=== PATIENT | female | born 1940 | race Caucasian/White ===

== ENCOUNTER → 2021-03-31 | Outpatient (CLI) | payer MEDICARE ==
[2021-03-31 13:34] LABS: ALBUMIN 3.9 GM/DL (3.2-5.2); ALT/SGPT 20 U/L (12-78); BILIRUBIN,TOTAL 0.2 MG/DL (0.2-1.0); BLOOD UREA NITROGEN 16 MG/DL (7-18); CALCIUM LEVEL 9.4 MG/DL (8.8-10.2); CARBON DIOXIDE LEVEL 33 MEQ/L (21-32); CHLORIDE LEVEL 106 MEQ/L (98-107); CHOLESTEROL LEVEL 202 MG/DL (<200); CHOLESTEROL RISK RATIO 2.463 (<5); CREATININE FOR GFR 0.69 MG/DL (0.55-1.30); GLOMERULAR FILTRATION RATE > 60.0 (>32); GLUCOSE, FASTING 96 MG/DL (70-100); HDL CHOLESTEROL 82 MG/DL (>40); HEMATOCRIT 42.7 % (36.0-47.0); HEMOGLOBIN 13.9 g/dl (12.0-15.5); LDL CHOLESTEROL 95 MG/DL (<100); MEAN CORPUSCULAR HEMOGLOBIN 29.8 pg (27.0-33.0); MEAN CORPUSCULAR HGB CONC 32.6 g/dl (32.0-36.5); MEAN CORPUSCULAR VOLUME 91.4 fl (80.0-96.0); NON-HDL-C 120 MG/DL; PLATELET COUNT, AUTOMATED 254 10^3/uL (150-450); POTASSIUM SERUM 4.3 MEQ/L (3.5-5.1); RED BLOOD COUNT 4.67 10^6/uL (4.00-5.40); SODIUM LEVEL 142 MEQ/L (136-145); TOTAL PROTEIN 6.9 GM/DL (6.4-8.2); TRIGLYCERIDES LEVEL 124 MG/DL (<150); WHITE BLOOD COUNT 5.6 10^3/uL (4.0-10.0)
[2021-03-31 14:31] LABS: TOTAL 25(OH) VITAMIN D 34.6 NG/ML (30.0-100.0); VITAMIN B12 LEVEL 450 PG/ML (247-911)
== END ==
LOC: M PLALAB 11:00
PROVIDERS: ATTEND Nurse Practitioner Adult Health
DX: R01.1 Cardiac murmur, unspecified (principal); Z13.21 Encounter for screening for nutritional disorder; Z13.29 Encounter for screening for other suspected endocrine disorder; Z13.220 Encounter for screening for lipoid disorders; Z79.899 Other long term (current) drug therapy

== ENCOUNTER → 2021-05-09 | Outpatient (CLI) | payer MEDICARE ==
--- NOTE | 2021-05-10 13:39 | ECHO ---
ECHOCARDIOGRAM DATE OF PROCEDURE: 05/09/2021 Age: 80 Gender: Female Height: 61 inches Weight: 137 pounds Body Surface Area: 1.6 m2 PATIENT LOCATION: Outpatient. REFERRING PROVIDER: Jess Farley RN, ANP INDICATION: Heart murmur. MEASUREMENTS: 2D Measurements: RV 3.5 cm LV 4.3 cm Septum 1.0 cm Posterior wall 1.0 cm Aortic root 3.0 cm LA - 3.6 cm LVEF 70% Doppler Measurements: AV 3.08 m/sec LVOT - 0.9 m/sec LVOT diameter 1.8 cm Mean AV gradient 24 mmHg Dimensionless index 0.29 MV-E 01, A 112, EA ratio 0.8 Early mitral deceleration time 261 msec E prime medial 6 A prime medial 9 E prime lateral 8.4 Average E/E prime ratio 12.6/PCWP 17.6 mmHg PV - 0.9 m/sec Pulmonary artery acceleration time 100 msec RVSP 37 mmHg IVC 1.6 cm COMMENTS: Normal sinus rhythm without interventricular conduction disturbance. M-mode and 2-dimensional echocardiography was performed with pulse, continuous wave, color flow and tissue Doppler studies. Normal left ventricular size and wall thickness with hyperkinetic wall motion. Left atrial size upper limits of normal with Grade 1 LV diastolic dysfunction and current estimated mean left atrial pressure upper limits of normal. Normal right ventricular size and motion with Doppler evidence of mild pulmonary hypertension. Right atrial size upper limits of normal with normal IV size and collapse against an elevated central venous pressure. Normal aortic root and proximal ascending aortic diameter. No coarctation of the aorta. Moderate calcific aortic stenosis with trace insufficiency. Degenerative changes of the mitral valvular apparatus with adequate leaflet excursion and no posterior systolic buckling and no more than very mild insufficiency. Normal appearing tricuspid valve with very mild insufficiency. No apparent intracardiac mass or pericardial effusion.
== END ==
LOC: M CARPUL 08:24
PROVIDERS: ATTEND Nurse Practitioner Adult Health
DX: R01.1 Cardiac murmur, unspecified (principal)

== ENCOUNTER 2021-05-27 17:16 | Inpatient (IN) | payer MEDICARE ==
[~2021-05-27] VITALS: Ht 157.5 cm; Wt 62.0 kg
[2021-05-27] MEDS ORDERED: LORA-674 (17:41)
[2021-05-27] MEDS ORDERED: ERGO500029 (17:41)
[2021-05-27] MEDS ORDERED: BUSP10TA (17:41)
[2021-05-27] MEDS ORDERED: MONT10TA10 (17:41)
--- NOTE | 2021-05-27 18:16 | REPVR ---
PROCEDURE INFORMATION: Exam: CT Head Without Contrast Exam date and time: 05/27/2021 5:42 PM Age: 80 years old Clinical indication: Injury or trauma; Fall; Blunt trauma (contusions or hematomas); Additional info: Fall/hit head/unknown loc TECHNIQUE: Imaging protocol: Computed tomography of the head without contrast. Radiation optimization: All CT scans at this facility use at least one of these dose optimization techniques: automated exposure control; mA and/or kV adjustment per patient size (includes targeted exams where dose is matched to clinical indication); or iterative reconstruction. COMPARISON: No relevant prior studies available. FINDINGS: Brain: There is moderate to severe age-related parenchymal volume loss. White matter changes are demonstrated in the subcortical, centrum semiovale and periventricular white matter consistent with chronic age related small vessel ischemic changes. Cerebral ventricles: There is disproportionate enlargement of the ventricles relative to the cortical sulci, findings suggestive of normal pressure hydrocephalus. Paranasal sinuses: See "Bones/joints" finding. Mastoid air cells: Visualized mastoid air cells are well aerated. Bones/joints: Fractures of the lateral anterior wall right maxillary sinus of the right maxillary sinus. Near complete opacification of the right maxillary sinus which may represent inflammatory disease although a traumatic etiology not excluded. Air-fluid levels may related to acute trauma versus acute sinusitis. Mild widening of the right frontal zygomatic suture may indicate a fracture. Soft tissues: Unremarkable. IMPRESSION: 1. Fractures of the lateral anterior wall right maxillary sinus of the right maxillary sinus. Near complete opacification of the right maxillary sinus which may represent inflammatory disease although a traumatic etiology not excluded. Air-fluid levels may related to acute trauma versus acute sinusitis. 2. There is moderate to severe age-related parenchymal volume loss. White matter changes are demonstrated in the subcortical, centrum semiovale and periventricular white matter consistent with chronic age related small vessel ischemic changes. 3. There is disproportionate enlargement of the ventricles relative to the cortical sulci, findings suggestive of normal pressure hydrocephalus. 4. Mild widening of the right frontal zygomatic suture may indicate a fracture. Electronically signed by: Tyler Almendarez On 05/27/2021 18:15:49 PM
--- NOTE | 2021-05-27 18:23 | REPVR ---
PROCEDURE INFORMATION: Exam: CT Maxillofacial Without Contrast Exam date and time: 05/27/2021 5:42 PM Age: 80 years old Clinical indication: Injury or trauma; Fall; Blunt trauma (contusions or hematomas); Cheek bone and forehead and orbit/periorbital and jaw; Not specified; Bilateral; Additional info: Fall/hit head/unknown loc TECHNIQUE: Imaging protocol: Computed tomography images of the face without contrast. Radiation optimization: All CT scans at this facility use at least one of these dose optimization techniques: automated exposure control; mA and/or kV adjustment per patient size (includes targeted exams where dose is matched to clinical indication); or iterative reconstruction. COMPARISON: No relevant prior studies available. FINDINGS: Orbital cavity: Orbits are normal. Globes are unremarkable. Bones/joints: Fractures of the lateral anterior wall the right maxillary sinus. Mild widening of the right frontal zygomatic suture may represent a normal variant although a traumatic dehiscence is not excluded. Degenerative changes both temporomandibular joints. The cervical spine demonstrates moderate degenerative changes. Paranasal sinuses: Inflammatory changes demonstrated in the right maxillary sinus may indicate chronic sinusitis although changes secondary to trauma to be considered as well. Ethmoid and sphenoid sinuses are clear. The frontal sinuses are not pneumatized. Marked narrowing of the right ostiomeatal complex secondary to membranous thickening. Soft tissues: Mild pre maxillary soft tissue edema/contusion. Vasculature: Atherosclerotic changes both carotid arteries. Dental: Marked erosive changes of the of alveolar process of the edentulous maxilla. IMPRESSION: 1. Fractures of the lateral anterior wall the right maxillary sinus. 2. Inflammatory changes demonstrated in the right maxillary sinus may indicate chronic sinusitis although changes secondary to trauma to be considered as well. 3. Mild widening of the right frontal zygomatic suture may represent a normal variant although a traumatic dehiscence is not excluded. 4. Marked narrowing of the right ostiomeatal complex secondary to membranous thickening. 5. Mild pre maxillary soft tissue edema/contusion. Electronically signed by: Tyler Almendarez On 05/27/2021 18:23:26 PM
--- NOTE | 2021-05-27 18:30 | REPVR ---
PROCEDURE INFORMATION: Exam: CT Cervical Spine Without Contrast Exam date and time: 05/27/2021 5:42 PM Age: 80 years old Clinical indication: Injury or trauma; Fall; Blunt trauma; Additional info: Fall/hit head/unknown loc TECHNIQUE: Imaging protocol: Computed tomography images of the cervical spine without contrast. Radiation optimization: All CT scans at this facility use at least one of these dose optimization techniques: automated exposure control; mA and/or kV adjustment per patient size (includes targeted exams where dose is matched to clinical indication); or iterative reconstruction. COMPARISON: No relevant prior studies available. FINDINGS: Bones/joints: Degenerative changes both temporomandibular joints. Discs/Spinal canal/Neural foramina: There are degenerative changes demonstrated in the atlantoaxial joint at C1-C2 with osteophytes and joint space narrowing. The transverse ligament is normal. Disc space narrowing C3-C4 through T1-T2 with prominent intervertebral osteophytes. Straightened cervical lordosis. Moderate to severe foraminal stenosis on the right at C2, moderate foraminal stenosis on the right at C3, bilateral moderate foraminal stenosis at C4, moderate to severe foraminal stenosis on the left and mild foraminal stenosis on the right at C5, mild bilateral foraminal stenosis at C6, mild bilateral foraminal stenosis at C7. Multilevel disc osteophyte complexes result in varying degrees of effacement of the ventral subarachnoid space. The posterior disc protrusions at C3-C4 and C4-C5 without cord compromise. Disc osteophyte complex at C5-C6 effaces the ventral subarachnoid space with moderate to severe left hemicord impingement. Posterior disc protrusion at C6-C7 effaces the ventral subarachnoid space resulting in moderate cord impingement. Disc osteophyte complex at C7-T1 is resulting in moderate cord impingement. Sinuses: Please refer to accompanying maxillofacial CT with description of the paranasal sinuses. Lungs: Bilateral apical pleuroparenchymal scarring. Vasculature: Atherosclerotic changes both carotid arteries. Soft tissues: See "Discs/Spinal canal/Neural foramina" finding. 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 Electronically signed by: Tyler Almendarez On 05/27/2021 18:29:47 PM
[2021-05-27 19:56] LABS: BASO # 0.1 10^3/uL (0.0-0.2); BASO % 0.9 % (0.0-1.0); EOS # 0.1 10^3/uL (0.0-0.5); EOS % 1.2 % (0.0-3.0); HEMATOCRIT 40.9 % (36.0-47.0); HEMOGLOBIN 13.7 g/dl (12.0-15.5); LYMPH # 1.5 10^3/uL (1.5-5.0); LYMPH % 25.2 % (24.0-44.0); MEAN CORPUSCULAR HEMOGLOBIN 29.5 pg (27.0-33.0); MEAN CORPUSCULAR HGB CONC 33.5 g/dl (32.0-36.5); MONO # 0.5 10^3/uL (0.0-0.8); NEUTROPHILS # 3.8 10^3/uL (1.5-8.5); NEUTROPHILS % 64.2 % (36.0-66.0); PLATELET COUNT, AUTOMATED 258 10^3/uL (150-450); RED BLOOD COUNT 4.65 10^6/uL (4.00-5.40); WHITE BLOOD COUNT 5.8 10^3/uL (4.0-10.0)
[2021-05-27 20:20] LABS: ALBUMIN 3.6 GM/DL (3.2-5.2); ALT/SGPT 22 U/L (12-78); BILIRUBIN,DIRECT < 0.1 MG/DL (0.0-0.2); BILIRUBIN,TOTAL 0.3 MG/DL (0.2-1.0); BLOOD UREA NITROGEN 15 MG/DL (7-18); CALCIUM LEVEL 8.9 MG/DL (8.8-10.2); CARBON DIOXIDE LEVEL 31 MEQ/L (21-32); CHLORIDE LEVEL 104 MEQ/L (98-107); CK-MB VALUE MASS 3.2 NG/ML (<3.6); CPK CREATINE PHOSPHOKINASE 749 U/L (26-192); CREATININE FOR GFR 0.81 MG/DL (0.55-1.30); FREE T4 0.99 NG/DL (0.76-1.46); GLOMERULAR FILTRATION RATE > 60.0 (>32); GLUCOSE, FASTING 89 MG/DL (70-100); MB/CK RELATIVE INDEX 0.43 (< OR =4); POTASSIUM SERUM 4.2 MEQ/L (3.5-5.1); SODIUM LEVEL 141 MEQ/L (136-145); TOTAL PROTEIN 6.9 GM/DL (6.4-8.2); TROPONIN I 0.05 NG/ML (< 0.10)
[2021-05-27] MEDS ORDERED: MORPHINE 2 MG/ML 1ML VIAL (J2270) IV ONE (20:25)
[2021-05-27 20:28] LABS: RSV AMPLIFICATION NEGATIVE (NEGATIVE)
--- NOTE | 2021-05-27 21:01 | REPVR ---
PROCEDURE INFORMATION: Exam: XR Chest Exam date and time: 05/27/2021 8:54 PM Age: 80 years old Clinical indication: Shortness of breath and other: Syncope TECHNIQUE: Imaging protocol: XR of the chest. Views: 1 view. COMPARISON: CT Spine,cervical w/o contrast 05/27/2021 5:48 PM FINDINGS: Lungs: COPD. Mild increased interstitial markings likely chronic. No segmental or lobar infiltrates. Pleural spaces: Unremarkable. No pleural effusion. No pneumothorax. Heart/Mediastinum: Unremarkable. No cardiomegaly. Bones/joints: Unremarkable. IMPRESSION: 1. COPD. 2. Mild increased interstitial markings likely chronic. No segmental or lobar infiltrates. Electronically signed by: Tyler Almendarez On 05/27/2021 21:00:59 PM
--- NOTE | 2021-05-27 22:14 | HPEPDOC ---
[facility] Medical History & Physical Date of Admission May 27, 2021 Date of Service: May 27, 2021 Primary Care Physician: Jess Farley Attending Physician: ALFONZO PRITCHETT MD History and Physical CHIEF COMPLAINT:Fall HISTORY OF PRESENT ILLNESS: is a pleasant 80yo female with likely dementia who presented to the [facility] ED via EMS on 05/27/21 after sustaining a fall. She was walking downhill on a sidewalk when she fell. Per reports, the fall was witnessed by bystanders and she made primary contact on the right side of her face. The patient herself says that she was not using her walker, while reports from the field state that she was. The bystandards subsequently called EMS and she was brought to the ED. The patient does not remember falling and feels as though she likely did lose consciousness for a brief period. She reports there was bleeding from her nose and while not in significant pain, the right side of her face is sore. Initial imaging in the ED revealed a fracture of the right maxillary sinus, widening of the right frontal zygomatic suture (potentially indicative of fracture), and enlarged ventricles suggestive of NPH. Initial labs were unremarkable with the exception of a moderately elevated creatinine kinase (749). Of note, the patient recently moved to the area from [place] in November 2020 and established primary care locally with Jess Farley NP at the [facility] [place]. Per review of recent visits, the patient's daughters has many concerns related the patient's memory. Apparently she has had recent falls prior to the one today and been found in the wrong apartment. Due to issues with memory she was recently started on buspirone. REVIEW OF SYSTEMS: CONSTITUTIONAL: Denies recent fever, chills, night sweats, or unintentional change in weight HEENT: Reports soreness over the right side of her face, as well as bleeding from the nose s/p fall. Denies blurry vision, double vision, eye pain, tinnitus, ear pain CARDIOVASCULAR: Denies chest pain, chest pressure, or palpitations RESPIRATORY: Denies dyspnea or cough GASTROINTESTINAL: Denies abdominal pain, nausea, vomiting, diarrhea, or blood in stool GENITOURINARY: Denies dysuria or hematuria MUSCULOSKELETAL: Denies any significant myalgias or arthralgias NEUROLOGICAL: Reports that she does have issue with memory at times. HEMATOLOGIC: Denies recent easy bleeding or bruising (separate from today's fall) LYMPHATIC: Denies any new lumps or bumps. PAST MEDICAL/SURGICAL HISTORY: Recent memory changes and falls, likely related to dementia (has been referred to neurology for further work-up) Patient recently moved to the area and only just established primary care within the past couple months. There were no records for her new PCP to review. Hysterectomy, 1971 Unspecified foot surgery, 1989 Left knee arthroplasty, 1994 Right knee arthroplasty, 1997 SOCIAL HISTORY: Patient lives alone in [facility]. She does have a daughter who lives nearby and has multiple concerns about the patient's wellbeing related to memory changes and recent falls. Per recent PCP notes, patient is a non-smoker, does not consume alcohol and denied illicit drug use. FAMILY HISTORY: Father: ; dementia Mother: ; unspecified heart disease, 80% stenosis of carotid arteries Sister: Dementia Daughter: ; sustained brain injury after attempted suicide and later at a rehab center. ALLERGIES: Please see below. HOME MEDICATIONS: Please see below. PHYSICAL EXAMINATION: Vital Signs Date Time Temp Pulse Resp B/P (MAP) Pulse Ox O2 Delivery O2 Flow Rate FiO2 05/27/21 17:37 97.9 97 18 134/62 (86) 99 Room Air GENERAL APPEARANCE: Pleasant elderly female lying on her left side in ED bed. She is oriented to person place and time, but some of her responses are incongruent in tangential. No acute distress. HEENT: Normocephalic. There is bruising just inferior to the right eye over the cheekbone. There is dried crusted blood in the right nare. Wearing eyeglasses. Noninjected, anicteric sclera. Bilateral ear canals are patent with no signs of acute trauma. Oral cavity: Edentulous. No pharyngeal erythema or exudate appreciated. Neck: No lymphadenopathy appreciated. Trachea midline. CARDIOVASCULAR: 3/6% crescendo decrescendo systolic murmur. Regular rate, regular rhythm. Normal S1 and S2. LUNGS: Somewhat diminished tidal volume with no adventitious breath sounds appreciated. Speaking full sentences. Accessory muscle use. ABDOMEN: Soft, nontender nondistended. Normoactive bowel sounds throughout. No guarding or rigidity appreciated. No hepatosplenomegaly, no palpable masses appreciated. MUSCULOSKELETAL: 5/5 muscle strength of bilateral upper and lower extremities. EXTREMITIES: There is some slight swelling with no pitting edema of bilateral lower extremities. Healed incisional scars over bilateral knees but there are no active sources of bleeding/contusions over arms and legs. NEUROLOGICAL: Patient is alert and oriented to person, place, and time. Her short-term memory recall was actually intact. Cranial nerves III through XII are grossly intact. Sensation to light touch of upper and lower extremities intact bilaterally. Patient's responses to questions are delayed somewhat, but appropriate most times. She does have some incongruent thoughts and was tangential at times in response. 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 Certainly signs of dementia present. PSYCHIATRIC: Mood and affect appear appropriate. LABORATORY DATA: Please see below. IMAGING: CT cervical spine without contrast, 05/27/2021 FINDINGS: Bones/joints: Degenerative changes both temporomandibular joints. Discs/Spinal canal/Neural foramina: There are degenerative changes demonstrated in the atlantoaxial joint at C1-C2 with osteophytes and joint space narrowing. The transverse ligament is normal. Disc space narrowing C3-C4 through T1-T2 with prominent intervertebral osteophytes. Straightened cervical lordosis. Moderate to severe foraminal stenosis on the right at C2, moderate foraminal stenosis on the right at C3, bilateral moderate foraminal stenosis at C4, moderate to severe foraminal stenosis on the left and mild foraminal stenosis on the right at C5, mild bilateral foraminal stenosis at C6, mild bilateral foraminal stenosis at C7. Multilevel disc osteophyte complexes result in varying degrees of effacement of the ventral subarachnoid space. The posterior disc protrusions at C3-C4 and C4-C5 without cord compromise. Disc osteophyte complex at C5-C6 effaces the ventral subarachnoid space with moderate to severe left hemicord impingement. Posterior disc protrusion at C6-C7 effaces the ventral subarachnoid space resulting in moderate cord impingement. Disc osteophyte complex at C7-T1 is resulting in moderate cord impingement. Sinuses: Please refer to accompanying maxillofacial CT with description of the paranasal sinuses. Lungs: Bilateral apical pleuroparenchymal scarring. Vasculature: Atherosclerotic changes both carotid arteries. Soft tissues: See "Discs/Spinal canal/Neural foramina" finding. IMPRESSION: Marked degenerative spondylosis of the cervical spine without acute findings." CT head without contrast, 05/27/2021 FINDINGS: Brain: There is moderate to severe age-related parenchymal volume loss. White matter changes are demonstrated in the subcortical, centrum semiovale and periventricular white matter consistent with chronic age related small vessel ischemic changes. Cerebral ventricles: There is disproportionate enlargement of the ventricles relative to the cortical sulci, findings suggestive of normal pressure hydrocephalus. Paranasal sinuses: See "Bones/joints" finding. Mastoid air cells: Visualized mastoid air cells are well aerated. Bones/joints: Fractures of the la teral anterior wall right maxillary sinus of the right maxillary sinus. Near complete opacification of the right maxillary sinus which may represent inflammatory disease although a traumatic etiology not excluded. Air-fluid levels may related to acute trauma versus acute sinusitis. Mild widening of the right frontal zygomatic suture may indicate a fracture. Soft tissues: Unremarkab le. IMPRESSION: 1. Fractures of the lateral anterior wall right maxillary sinus of the right maxillary sinus. Near complete opacification of the right maxillary sinus which may represent inflammatory disease although a traumatic etiology not excluded. Air-fluid levels may related to acute trauma versus acute sinusitis. 2. There is moderate to severe age-related parenchymal volume loss. White matter changes are demonstrated in the subcortical, centrum semiovale and periventricular white matter consistent with chronic age related small vessel ischemic changes. 3. There is disproportionate enlargement of the ventricles relative to the cortical sulci, findings suggestive of normal pressure hydrocephalus. 4. Mild widening of the right frontal zygomatic suture may indicate a fracture. CT maxillofacial without contrast, 05/27/2021 FINDINGS: Orbital cavity: Orbits are normal. Globes are unremarkable. Bones/joints: Fractures of the lateral anterior wall the right maxillary sinus. Mild widening of the right frontal z ygomatic suture may represent a normal variant although a traumatic dehiscence is not excluded. Degenerative changes both temporomandibular joints. The cervical spine demonstrates moderate degenerative changes. Paranasal sinuses: Inflammatory changes demonstrated in the right maxillary sinus may indicate chronic sinusitis although changes secondary to trauma to be considered as well. Ethmoid and sphenoid sinuses are clear. The frontal sinuses are not pneumatized. Marked narrowing of the right ostiomeatal complex secondary to membranous thickening. Soft tissues: Mild pre maxillary soft tissue edema/contusion. Vasculature: Atherosclerotic changes both carotid arteries. Dental: Marked erosive changes of the of alveolar process of the edentulous maxilla. IMPRESS ION: 1. Fractures of the lateral anterior wall the right maxillary sinus. 2. Inflammatory changes demonstrated in the right maxillary sinus may indicate chronic sinusitis although changes secondary to trauma to be considered as well. 3. Mild widening of the right frontal zygomatic suture may represent a normal variant although a traumatic dehiscence is not excluded. 4. Marked zeeshan rowing of the right ostiomeatal complex secondary to membranous thickening. 5. Mild pre maxillary soft tissue edema/contusion. The lateral wall of the maxillary sinus fracture includes a fragment of the lateral wall that is displaced 4 mm into the maxillary sinus. The anterior wall of the maxillary sinus fracture is a fracture of the continues from the inferior orbital rim inferiorly through the anterior wall of the maxillary sinus with 2 mm of depression. In addition, as seen on sagittal image 24 and coronal image 18 there is a small fracture of the posterior right orbital floor with 1 mm of depression. As seen on axial image 18, slight buckling of the lateral wall of right orbit." Portable chest x-ray, 05/27/2021 FINDINGS: Lungs: COPD. Mild increased interstitial markings likely chronic. No segmental or lobar infiltrates. Pleural spaces: Unremarkable. No pleural effusion. No pneumothorax. Heart/Mediastinum: Unremarkable. No cardiomegaly. Bones/joints: Unremarkable. IMPRESSION: 1. COPD. 2. Mild increased interstitial markings likely chronic. No segmental or lobar infiltrates." MICROBIOLOGY: Please see below. ASSESSMENT & PLAN: This is an 80yo female with h/o likely dementia w/ recent memory issues and falls who presented to the ED on 05/27 via EMS after sustaining a fall going downhill while on a sidewalk. Pt did not remember falling and believes she lost consciousness. Imaging showed fracture of the right maxillary sinus as well as findings suggestive of NPH. Patient was admitted primarily for facial fractures and started on prophylactic antibiotics with sinus swelling, debility/social concerns, and slightly elevated CK. #Right lateral and anterior wall maxillary sinus fractures s/p fall -Patient suffered fall while walking on a sidewalk downhill; does not recall the fall feels like she lost consciousness; bystanders witnessed it and called EMS -Patient is not in significant pain at this time and was administered 1 dose of IV morphine; for now as needed Tylenol has been added and could certainly consider adding a stronger as needed medication for pain should patient become more symptomatic -Per addendum radiologist Dr. Ariza: Lateral wall fracture pushed about 4 mm into the sinus and anterior maxillary wall fracture was depressed 2 mm -Discussed the case with Dr. Thomas of ENT who agreed with starting antibiotics prophylactically due to the sinusitis, but does not feel surgical intervention is warranted. -Started doxycycline in the setting of sinusitis possibly from hematoma -Fall risk precautions -prn morphine along with scheduled Tylenol #Syncope -Patient had witnessed fall earlier today that she does not recall and feels she did lose consciousness -EKG showed normal sinus rhythm -Fall risk precautions -Orthostatic vital signs ordered -TSH unremarkable; BNP ordered; electrolytes WNL -Telemetry #Elevated CPK -Initial CPK of 749 -This is most likely secondary to her fall today; considering it is not thousand or above, lower suspicion for rhabdomyolysis -Regular diet started, but did give patient 500 mL of normal saline till pushing through the kidney -Urine myoglobin has been ordered -Kidney function was normal #Imaging findings suggestive of normal pressure hydrocephalus i/s/o presumed dementia -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, which is more common in older adults, plus no acute hemorrhage was seen on imaging upon admission -Patient has had recent falls per PCP notes and has had recent issues with memory and cognition; denies urinary incontinence -Certainly could be a contributing factor to her recent falls and memory issues -Patient recently established with Jess Farley NP who started the patient on buspirone for memory issues and made a referral to neurology -Home buspirone continued #Elevated blood pressure -Patient had systolic blood pressure of 188 which responded relatively well to a dose of morphine -Patient has no documented history of hypertension although she recently moved to the area and only just established with a local provider so records are scant. -Continue to monitor pressures and address pain; should pain be controlled and pressures remain elevated, consider antihypertensive pharmacotherapy #Debility and social concerns -PT/OT consults made -Patient lives alone and has had recent falls and memory issues on top of the fall that caused this presentation. Patient's daughter significant concerns and patient may require PFS consult. #DVT prophylaxis: Subcutaneous Lovenox CODE STATUS: Patient verbally stated she wants to be DNR/DNI. Nursing order made for MOST form to be completed. Disposition: Admit to [facility] Home Medications Scheduled Buspirone HCl (Buspirone HCl) 10 Mg Tablet, 10 MG PO DAILY Calcium Carbonate/Vitamin D3 (Calcium 500-Vit D3 200 Tablet) 1 Each Tablet, 1 TAB PO BID Ergocalciferol (Vitamin D2) (Vitamin D2) 50,000 Units Cap, 50,000 UNITS PO QWEEK Scheduled PRN Acetaminophen (Tylenol Arthritis) 650 Mg Tablet.er, 650 MG PO BID PRN for PAIN LEVEL 1-4 Loratadine (Loratadine) 10 Mg Tablet, 10 MG PO DAILY PRN for ALLERGY SYMPTOMS Allergies Coded Allergies: Penicillins (Verified Allergy, Unknown, 05/27/21) Sulfa (Sulfonamide Antibiotics) (Verified Allergy, Unknown, 05/27/21) GME ATTESTATION GME ATTESTATION My faculty preceptor for this patient encounter was physically present during the encounter and was fully available. All aspects of the patient interview, examination, medical decision making process, and medical care plan development were reviewed and approved by the faculty preceptor. The faculty preceptor is aware and concurs with the plan as stated in the body of this note and will attest to such by his/her cosignature. ATTENDING NOTE TIME OF SERVICE 1015PM CC: fall HPI: Ms.Sanford boston 80 yr old F w a hx of osteoporosis, dementia, small vessel ischemic disease, cataracts, COPD or Asthma, and unsteady gait had a fall while walking down a hill w/o her walker and thereafter hit her head & transiently lost consciousness. Date Time Temp Pulse Resp B/P (MAP) Pulse Ox O2 Delivery O2 Flow Rate FiO2 05/27/21 17:37 97.9 97 18 134/62 (86) 99 Room Air PE: she has a slim build / ecchymoses around her right eye / is alert and oriented LABS IMAGING CT cervical spine IMPRESSION: Marked degenerative spondylosis of the cervical spine without acute findings. CT head IMPRESSION: 1. Fractures of the lateral anterior wall right maxillary sinus of the right maxillary sinus. Near complete opacification of the right maxillary sinus which may represent inflammatory disease although a traumatic etiology not excluded. Air-fluid levels may related to acute trauma versus acute sinusitis. 2. There is moderate to severe age-related parenchymal volume loss. White matter changes are demonstrated in the subcortical, centrum semiovale and periventricular white matter consistent with chronic age related small vessel ischemic changes. 3. There is disproportionate enlargement of the ventricles relative to the cortical sulci, findings suggestive of normal pressure hydrocephalus. 4. Mild widening of the right frontal zygomatic suture may indicate a fracture. CT maxillofacial IMPRESSION: 1. Fractures of the lateral anterior wall the right maxillary sinus. 2. Inflammatory changes demonstrated in the right maxillary sinus may indicate chronic sinusitis although changes secondary to trauma to be considered as well. 3. Mild widening of the right frontal zygomatic suture may represent a normal variant although a traumatic dehiscence is not excluded. 4. Marked narrowing of the right ostiomeatal complex secondary to membranous thickening. 5. Mild pre maxillary soft tissue edema/contusion. Chest xray IMPRESSION: 1. COPD. 2. Mild increased interstitial markings likely chronic. No segmental or lobar infiltrates. ASSESSMENT & PLAN 1 Syncope - telemetry / fall precautions / orthostats 2 Fractures of the lateral anterior wall right maxillary sinus / acute sinusitis 2/2 mechanical fall - will touch base with regarding abx +/- out patient follow up / acetaminophen for pain 3 NPH ? / Dementia (she had a fall, some of the content of her speech was not congruent with the conversation) - the day time team may consider consulting Neurology & obtaining collateral hx from the patient's daughter to detemine if she has NPH and is a candidate for ventricular shunt 4 Rhabdomyolysis 2/2 fall - f/u urine myoglobin / IVF / trend CPK 5 Osteoporosis - c/w home meds 6 COPD vs Asthma - out pt PFTs 7 Uncontrolled HTN ? possibly due to pain- monitor vitals if her BP is still elevated after her pain is well controlled she may need anti-HTN meds 8 Cataracts ? (she has had blurry vision for awhile has surgery to "scrape a water main pipe layer her eyes") scheduled in the near future rest per 's H&P BETO CARNEY D.O. May 27, 2021 22:14 ALFONZO PRITCHETT MD May 27, 2021 23:13
[2021-05-27] MEDS ORDERED: ERGO500029 PO (23:48)
[2021-05-27] MEDS ORDERED: OYST500T92 PO (23:48)
[2021-05-27] MEDS ORDERED: BUSP10TA PO (23:48)
[2021-05-27] MEDS ORDERED: ACET650T61 PO (23:48)
[2021-05-27] MEDS ORDERED: ALEN70TA82 PO (23:48)
[2021-05-27] MEDS ORDERED: LORA-622 PO (23:48)
[2021-05-27] MEDS ORDERED: HOME MED LIST COMPLETE! XX SCH (23:50)
[2021-05-28] MEDS ORDERED: ACETAMINOPHEN 650MG ER TAB (TYLENOL ARTHRITIS) PO ONE
[2021-05-28 00:06] VITALS: BP 160/72
[2021-05-28] MEDS ORDERED: MAALOX 30 ML SUSP *UDC PO PRN (00:10)
[2021-05-28] MEDS ORDERED: MOM 30ML SUSPENSION UDC PO PRN (00:10)
[2021-05-28 00:14] VITALS: BP_SYST 139; BP_SYST 147; BP_SYST 150; BP_DIAS 68; BP_DIAS 70; BP_DIAS 73
[2021-05-28] MEDS ORDERED: MORPHINE 2 MG/ML 1ML VIAL (J2270) IV PRN (00:15)
[2021-05-28] MEDS ORDERED: LORATADINE 10 MG TAB PO PRN (00:15)
[2021-05-28] MEDS: DOXYCYCLINE HYCLATE 100MG TABLET PO SCH ×2 (00:22→18:11)
[2021-05-28 01:07] LABS: NT-PRO BNP 177 PG/ML (<450)
[2021-05-28] MEDS ORDERED: NS 500 ML IV ONE (02:20)
[2021-05-28 06:00] VITALS: BP 130/68
[2021-05-28] MEDS: ACETAMINOPHEN 650MG ER TAB (TYLENOL ARTHRITIS) PO SCH ×3 (06:16→21:05)
--- NOTE | 2021-05-28 06:21 | ECGEPIP ---
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
[2021-05-28 08:21] LABS: BASO # 0.1 10^3/uL (0.0-0.2); EOS # 0.1 10^3/uL (0.0-0.5); EOS % 2.5 % (0.0-3.0); HEMATOCRIT 36.9 % (36.0-47.0); HEMOGLOBIN 12.2 g/dl (12.0-15.5); LYMPH # 1.6 10^3/uL (1.5-5.0); LYMPH % 33.5 % (24.0-44.0); MEAN CORPUSCULAR HEMOGLOBIN 29.7 pg (27.0-33.0); MEAN CORPUSCULAR HGB CONC 33.1 g/dl (32.0-36.5); MEAN CORPUSCULAR VOLUME 89.8 fl (80.0-96.0); MONO # 0.5 10^3/uL (0.0-0.8); MONO % 11.1 % (2.0-8.0); NEUTROPHILS # 2.5 10^3/uL (1.5-8.5); NEUTROPHILS % 51.7 % (36.0-66.0); PLATELET COUNT, AUTOMATED 214 10^3/uL (150-450); RED BLOOD COUNT 4.11 10^6/uL (4.00-5.40); WHITE BLOOD COUNT 4.8 10^3/uL (4.0-10.0)
[2021-05-28 08:51] LABS: BLOOD UREA NITROGEN 12 MG/DL (7-18); CALCIUM LEVEL 8.8 MG/DL (8.8-10.2); CARBON DIOXIDE LEVEL 30 MEQ/L (21-32); CHLORIDE LEVEL 108 MEQ/L (98-107); CPK CREATINE PHOSPHOKINASE 432 U/L (26-192); CREATININE FOR GFR 0.69 MG/DL (0.55-1.30); GLOMERULAR FILTRATION RATE > 60.0 (>32); GLUCOSE, FASTING 102 MG/DL (70-100); POTASSIUM SERUM 4.1 MEQ/L (3.5-5.1); SODIUM LEVEL 140 MEQ/L (136-145)
[2021-05-28] MEDS: ENOXAPARIN 40MG/0.4ML SYRINGE (J1650 PER 10MG) SC SCH (10:49)
[2021-05-28] MEDS: busPIRone 10 MG TAB PO SCH (10:57)
[2021-05-28] MEDS: CALCIUM/VITAMIN D 500 MG TAB PO SCH ×2 (10:57→21:05)
[2021-05-28 14:00] VITALS: BP 123/66
--- NOTE | 2021-05-28 14:11 | IPNPDOC ---
Text Note Date of Service The patient was seen on 05/28/21. NOTE Subjective: No any acute events overnight. Patient denied fever, chills, don sea, vomiting, diarrhea dysuria. Objective: GENERAL APPEARANCE: NAD HEENT: no scleral icterus, no JVD, EOMI, right facial hematoma, there is dried crusted blood in the right nare CARDIOVASCULAR: S1S2 LUNGS: Diminished lung sounds bilaterally ABDOMEN: soft & not tender w palpation MUSCULOSKELETAL: no cyanosis, no swelling INTEGUMENT: no generalized pallor NEUROLOGICAL: cranial nerve function from 2-12 intact, follows commands, speech not dysarthric Assessment and plan This is an 80yo female with h/o likely dementia w/ recent memory issues and falls who presented to the ED on 05/27 via EMS after sustaining a fall going downhill while on a sidewalk. Pt did not remember falling and believes she lost consciousness. Imaging showed fracture of the right maxillary sinus as well as findings suggestive of NPH Right lateral and anterior wall maxillary sinus fractures s/p fall/deconditioning I talked to Dr. Thomas, he recommended follow-up with him in the outpatient settings, no indication for surgical intervention for now Continue doxycycline p.o. Continue pain management Syncope PT/OT Telemetry Continue to monitor orthostatic vital signs Rhabdomyolysis Status post mechanical fall Patient received IV fluid Continue to monitor CPK trended down Normal pressure hydrocephalus I talked to neurologist Dr. Roy. I discussed with him transfer to [facility] for neurosurgical evaluation He recommended follow-up with neurosurgeon in the outpatient settings and not to transfer patient Hypertension Continue home meds Dementia Continue home meds DVT prophylaxis Subcutaneous Lovenox Disposition Family looking for fdc placement VS,Arvinde, I+O VS, [place]aelbone, I+O Laboratory Tests 05/27/21 19:28 05/28/21 07:50 Vital Signs Date Time Temp Pulse Resp B/P (MAP) Pulse Ox O2 Delivery O2 Flow Rate FiO2 05/28/21 06:00 97.3 71 16 130/68 (88) 95 Room Air I&O- Last 24 Hours up to 6 AM 05/28/21 06:00 Intake Total 250 ml Balance 250 ml YESSENIA HERNANDEZ DO May 28, 2021 14:11
[2021-05-28 22:00] VITALS: BP 142/68
[2021-05-29] MEDS: ACETAMINOPHEN 650MG ER TAB (TYLENOL ARTHRITIS) PO SCH ×3 (05:12→19:42)
[2021-05-29 06:00] VITALS: BP 131/76
[2021-05-29 09:31] LABS: BASO # 0.1 10^3/uL (0.0-0.2); BASO % 1.1 % (0.0-1.0); EOS # 0.1 10^3/uL (0.0-0.5); EOS % 2.9 % (0.0-3.0); HEMATOCRIT 39.4 % (36.0-47.0); HEMOGLOBIN 13.2 g/dl (12.0-15.5); LYMPH # 1.5 10^3/uL (1.5-5.0); LYMPH % 33.8 % (24.0-44.0); MEAN CORPUSCULAR HEMOGLOBIN 29.7 pg (27.0-33.0); MEAN CORPUSCULAR HGB CONC 33.5 g/dl (32.0-36.5); MEAN CORPUSCULAR VOLUME 88.5 fl (80.0-96.0); MONO # 0.4 10^3/uL (0.0-0.8); MONO % 9.2 % (2.0-8.0); NEUTROPHILS # 2.4 10^3/uL (1.5-8.5); NEUTROPHILS % 52.8 % (36.0-66.0); PLATELET COUNT, AUTOMATED 240 10^3/uL (150-450); RED BLOOD COUNT 4.45 10^6/uL (4.00-5.40); WHITE BLOOD COUNT 4.6 10^3/uL (4.0-10.0)
[2021-05-29] MEDS: ENOXAPARIN 40MG/0.4ML SYRINGE (J1650 PER 10MG) SC SCH (09:42)
[2021-05-29] MEDS: busPIRone 10 MG TAB PO SCH (09:42)
[2021-05-29] MEDS: CALCIUM/VITAMIN D 500 MG TAB PO SCH ×2 (09:42→19:42)
[2021-05-29 10:13] LABS: ALBUMIN 3.2 GM/DL (3.2-5.2); ALT/SGPT 18 U/L (12-78); BILIRUBIN,TOTAL 0.5 MG/DL (0.2-1.0); BLOOD UREA NITROGEN 8 MG/DL (7-18); CALCIUM LEVEL 8.6 MG/DL (8.8-10.2); CARBON DIOXIDE LEVEL 31 MEQ/L (21-32); CHLORIDE LEVEL 105 MEQ/L (98-107); GLOMERULAR FILTRATION RATE > 60.0 (>32); GLUCOSE, FASTING 97 MG/DL (70-100); POTASSIUM SERUM 3.9 MEQ/L (3.5-5.1); SODIUM LEVEL 139 MEQ/L (136-145); TOTAL PROTEIN 6.2 GM/DL (6.4-8.2)
[2021-05-29] MEDS: DOCUSATE SODIUM 100MG CAPSULE PO SCH (11:01)
--- NOTE | 2021-05-29 12:31 | IPNPDOC ---
Text Note Date of Service The patient was seen on 05/29/21. NOTE Subjective: No any acute events overnight. Patient seems confused in the mo rning, initially she was oriented in place and time and later she became disoriented Objective: GENERAL APPEARANCE: NAD HEENT: no scleral icterus, no JVD, EOMI, right facial hematoma, there is dried crusted blood in the right nares CARDIOVASCULAR: S1S2 LUNGS: Diminished lung sounds bilaterally ABDOMEN: soft & not tender w palpation MUSCULOSKELETAL: no cyanosis, no swelling INTEGUMENT: no generalized pallor NEUROLOGICAL: cranial nerve function from 2-12 intact, follows commands, speech not dysarthric Assessment and plan This is an 80yo female with h/o likely dementia w/ recent memory issues and falls who presented to the ED on 05/27 via EMS after sustaining a fall going downhill while on a sidewalk. Pt did not remember falling and believes she lost consciousness. Imaging showed fracture of the right maxillary sinus as well as findings suggestive of NPH Right lateral and anterior wall maxillary sinus fractures s/p fall/deconditioni ng I talked to Dr. Thomas, he recommended follow-up with him in the outpatient settings, no indication for surgical intervention for now Continue doxycycline p.o. day 2 Continue pain management Delirium Frequent reorientation Continue to monitor Syncope PT/OT Telemetry shows sinus rhythm orthostatic vital signs negative Rhabdomyolysis Status post mechanical fall Patient received IV fluid Continue to monitor CPK trended down Normal pressure hydrocephalus I talked to neurologist Dr. Roy. I discussed with him transfer to [facility] for neurosurgical evaluation He recommended follow-up with neurosurgeon in the outpatient settings and not to transfer patient Hypertension Continue home meds Dementia Continue home meds DVT prophylaxis Subcutaneous Lovenox Disposition Family is looking for prison placement VS,Fishbone, I+O VS, Fishbone, I+O Laboratory Tests 05/29/21 08:57 Vital Signs Date Time Temp Pulse Resp B/P (MAP) Pulse Ox O2 Delivery O2 Flow Rate FiO2 05/29/21 06:00 97.1 81 17 131/76 (94) 98 Room Air I&O- Last 24 Hours up to 6 AM 05/29/21 06:00 Intake Total 1100 ml Output Total 1925 ml Balance -825 ml YESSENIA HERNANDEZ DO May 29, 2021 12:31
[2021-05-29 14:00] VITALS: BP 146/70
[2021-05-29] MEDS: DOXYCYCLINE HYCLATE 100MG TABLET PO SCH (17:01)
[2021-05-29] MEDS ORDERED: RAMELTEON 8 MG TAB (ROZEREM) PO PRN (19:30)
--- NOTE | 2021-05-29 20:23 | CR ---
NEUROLOGY CONSULTATION DATE: 05/28/2021 REFERRING PROVIDER: Afshin Ruiz D.O. CONSULTING PHYSICIAN: Kingston El M.D. REASON FOR CONSULTATION: 1. Suspicion for normal pressure hydrocephalus. 2. CT evidence of disproportionate enlargement of the ventricles related to the cortical sulci, findings suggestive of normal pressure hydrocephalus. HISTORY OF PRESENT ILLNESS: Mona Velasco is an 80-year-old female with baseline mild dementia, who presented to [facility] on 05/27/2021 after sustaining a fall while walking downhill on a sidewalk. The patient states prior to this fall she has not had any further other falls for several years. She is mildly incontinent to her bladder on occasion she states. She usually ambulates with the use of her walker. The patient states she was not using a walker at the time when she fell. The patient denies having any magnetic gait. She was able to ambulate for me and does not demonstrate magnetic gait. She is however unsteady. She lives alone with a cat. She is able to identify correctly the year, month, location. If she has dementia, it is considered mild at this time. I do not believe at this point she needs a transfer to a neurosurgeon for immediate shunt placement for suspected NPH. There is moderate atrophy of the brain, however the ventricles do balloon posteriorly out of proportion to the sulci widening. It is possible she may have early NPH. At this point she is not so keen on having surgical intervention for it. PAST MEDICAL HISTORY: The patient's past medical history is significant for: 1. Cognitive impairment dementia. 2. Recent fall with right facial maxillary fracture. PAST SURGICAL HISTORY: The patient's past surgical history is significant for: 1. Hysterectomy in 1971. 2. Unspecified foot surgery in 1989. 3. Left knee arthroplasty in 1994. 4. Right knee arthroplasty in 1997. SOCIAL HISTORY: The patient lives at home at [facility] on her own. The patient denies use of any alcohol or illicit drugs or tobacco. FAMILY HISTORY: Father with dementia. REVIEW OF SYSTEMS: Fourteen point review of systems was obtained and was negative except as per HPI. PHYSICAL EXAMINATION: GENERAL APPEARANCE: The patient is oriented to person, place and time. Speech, language, comprehension and repetition are intact. HEENT: Pupils are two and a half mm and round. The extraocular muscles are intact. There is no nystagmus. NEUROLOGICAL: Sensation to V-1, V-2, V-3 intact to light touch. There is no loss of hearing to finger rub. No facial weakness on exam. Tongue is midline. There is no pronator drift. There is no ataxia, dysmetria or tremor. Sensory is intact to light touch in all four extremities. Strength is reasonable in all four extremities with weakness in bilateral iliopsoas grade 4+. The rest is 5. Romberg testing is negative. The patient ambulates with a slightly wide based unsteady gait. She does ambulate without the use of a walker, without any magnetic gait or shuffling. ASSESSMENT: 1. The patient is suspected to have possible syncope while getting short of breath while walking down a hill versus mechanical fall with CT evidence suspicious for possible normal pressure hydrocephalus. The patient has occasional urinary incontinence and has only had this most recent one fall in several years. She denies magnetic gait. 2. Fracture of lateral anterior wall right maxillary sinus. 3. Current rhabdomyolysis. PLAN: 1. The patient can be seen in outpatient neurology visits. 2. She can be referred by her PCP to an outpatient neurosurgical clinic for evaluation of NPH. 3. She does not need any emergent shunt placement at this time. 4. Electively, she and her family can make a decision whether they would like to pursue a surgical option. The patient is not interested in surgical option at this time. 5. Continue PT/OT evaluation. 6. The patient is recommended to use a walker at all times to ambulate.
[2021-05-29 20:46] VITALS: BP 125/64
[2021-05-29] MEDS ORDERED: hydrOXYzine 50 MG TAB PO ONE (22:05)
[2021-05-30 06:00] VITALS: BP 143/73
[2021-05-30] MEDS: ACETAMINOPHEN 650MG ER TAB (TYLENOL ARTHRITIS) PO SCH (06:03)
[2021-05-30 06:17] LABS: BASO # 0.1 10^3/uL (0.0-0.2); EOS # 0.2 10^3/uL (0.0-0.5); EOS % 3.5 % (0.0-3.0); HEMATOCRIT 36.8 % (36.0-47.0); HEMOGLOBIN 12.4 g/dl (12.0-15.5); MEAN CORPUSCULAR HEMOGLOBIN 29.7 pg (27.0-33.0); MEAN CORPUSCULAR HGB CONC 33.7 g/dl (32.0-36.5); MEAN CORPUSCULAR VOLUME 88.2 fl (80.0-96.0); MONO # 0.5 10^3/uL (0.0-0.8); MONO % 9.4 % (2.0-8.0); NEUTROPHILS # 2.2 10^3/uL (1.5-8.5); NEUTROPHILS % 46.1 % (36.0-66.0); PLATELET COUNT, AUTOMATED 229 10^3/uL (150-450); RED BLOOD COUNT 4.17 10^6/uL (4.00-5.40); WHITE BLOOD COUNT 4.9 10^3/uL (4.0-10.0)
[2021-05-30 06:50] LABS: ALBUMIN 2.8 GM/DL (3.2-5.2); ALT/SGPT 16 U/L (12-78); BILIRUBIN,TOTAL 0.3 MG/DL (0.2-1.0); BLOOD UREA NITROGEN 11 MG/DL (7-18); CARBON DIOXIDE LEVEL 29 MEQ/L (21-32); CHLORIDE LEVEL 106 MEQ/L (98-107); CREATININE FOR GFR 0.73 MG/DL (0.55-1.30); GLOMERULAR FILTRATION RATE > 60.0 (>32); GLUCOSE, FASTING 95 MG/DL (70-100); MAGNESIUM LEVEL 1.9 MG/DL (1.8-2.4); POTASSIUM SERUM 3.9 MEQ/L (3.5-5.1); SODIUM LEVEL 139 MEQ/L (136-145); TOTAL PROTEIN 5.7 GM/DL (6.4-8.2)
[2021-05-30] MEDS: ENOXAPARIN 40MG/0.4ML SYRINGE (J1650 PER 10MG) SC SCH (08:19)
[2021-05-30] MEDS: busPIRone 10 MG TAB PO SCH (08:19)
[2021-05-30] MEDS: DOCUSATE SODIUM 100MG CAPSULE PO SCH (08:20)
[2021-05-30] MEDS: CALCIUM/VITAMIN D 500 MG TAB PO SCH (08:20)
[2021-05-30] MEDS ORDERED: DOXY100T PO (11:57)
--- NOTE | 2021-05-30 12:47 | DS.PDOC ---
Discharge Summary General Date of Admission May 27, 2021 at 22:09 Date of Discharge 05/30/21 Discharge Summary PROCEDURES PERFORMED DURING STAY: [None]. ADMITTING DIAGNOSES: Right lateral and anterior wall maxillary sinus fractures s/p fall/deconditioning Delirium Syncope Rhabdomyolysis Normal pressure hydrocephalus Hypertension DISCHARGE DIAGNOSES: Right lateral and anterior wall maxillary sinus fractures s/p fall/deconditioning Delirium Syncope Rhabdomyolysis Normal pressure hydrocephalus Hypertension COMPLICATIONS/CHIEF COMPLAINT: Facial Fracture, Rhabdomylysis, Syncope. HISTORY OF PRESENT ILLNESS: is a pleasant 80yo female with likely dementia who presented to the [facility] ED via EMS on 05/27/21 after sustaining a fall. She was walking downhill on a sidewalk when she fell. Per reports, the fall was witnessed by bystanders and she made primary contact on the right side of her face. The patient herself says that she was not using her walker, while reports from the field state that she was. The bystandards subsequently called EMS and she was brought to the ED. The patient does not remember falling and feels as though she likely did lose consciousness for a brief period. She reports there was bleeding from her nose and while not in significant pain, the right side of her face is sore. Initial imaging in the ED revealed a fracture of the right maxillary sinus, widening of the right frontal zygomatic suture (potentially indicative of fracture), and enlarged ventricles suggestive of NPH. Initial labs were unremarkable with the exception of a moderately elevated creatinine kinase (749). Of note, the patient recently moved to the area from [place] in November 2020 and established primary care locally with Jess Farley NP at the [facility]. Per review of recent visits, the patient's daughters has many concerns related the patient's memory. Apparently she has had recent falls prior to the one today and been found in the wrong apartment. Due to issues with memory she was recently started on buspirone. HOSPITAL COURSE: Right lateral and anterior wall maxillary sinus fractures s/p fall/deconditioning I talked to Dr. Thomas, he recommended follow-up with him in the outpatient settings, no indication for surgical intervention for now. Neurology team consulted patient, patient was found to have normal pressure hydrocephalus on the CT scan. No surgical intervention indicated at this time. Neurology team recommended follow-up in the outpatient settings Patient received treatment with doxycycline p.o. and pain management DISCHARGE MEDICATIONS: Please see below. ALLERGIES: Please see below. PHYSICAL EXAMINATION ON DISCHARGE: VITAL SIGNS: Please see below. GENERAL APPEARANCE: NAD HEENT: no scleral icterus, no JVD, EOMI, right facial hematoma, there is dried crusted blood in the right nares CARDIOVASCULAR: S1S2 LUNGS: Diminished lung sounds bilaterally ABDOMEN: soft & not tender w palpation MUSCULOSKELETAL: no cyanosis, no swelling INTEGUMENT: no generalized pallor NEUROLOGICAL: cranial nerve function from 2-12 intact, follows commands, speech not dysarthric LABORATORY DATA: Please see below. IMAGING: See above PROGNOSIS: Fair ACTIVITY: [As tolerated]. DIET: Regular DISPOSITION: Home with home health ITEMS TO FOLLOWUP ON ON OUTPATIENT: Follow-up with neurologist and PCP DISCHARGE CONDITION: [Stable]. TIME SPENT ON DISCHARGE:40minutes. Vital Signs/I&Os Vital Signs Date Time Temp Pulse Resp B/P (MAP) Pulse Ox O2 Delivery O2 Flow Rate FiO2 05/30/21 06:00 97.5 76 17 143/73 (96) 96 Room Air I&O- Last 24 Hours up to 6 AM 05/30/21 05:59 Intake Total 1540 ml Output Total 1350 ml Balance 190 ml Laboratory Data Labs 24H Laboratory Tests 2 05/30/21 05:59: Immature Granulocyte % (Auto) 0.0, Neutrophils (%) (Auto) 46.1, Lymphocytes (%) (Auto) 40.0, Monocytes (%) (Auto) 9.4H, Eosinophils (%) (Auto) 3.5H, Basophils (%) (Auto) 1.0, Neutrophils # (Auto) 2.2, Lymphocytes # (Auto) 2.0, Monocytes # (Auto) 0.5, Eosinophils # (Auto) 0.2, Basophils # (Auto) 0.1, Nucleated Red Blood Cells % (auto) 0.0, Anion Gap 4L, Glomerular Filtration Rate > 60.0, Calcium Level 9.0, Magnesium Level 1.9, Total Bilirubin 0.3, Aspartate Amino Transf (AST/SGOT) 20, Alanine Aminotransferase (ALT/SGPT) 16, Alkaline Phosphatase 56, Total Protein 5.7L, Albumin 2.8L, Albumin/Globulin Ratio 1.0L CBC/BMP Laboratory Tests 05/30/21 05:59 Discharge Medications Scheduled Buspirone HCl (Buspirone HCl) 10 Mg Tablet, 10 MG PO DAILY, (Reported) Calcium Carbonate/Vitamin D3 (Calcium 500-Vit D3 200 Tablet) 1 Each Tablet, 1 TAB PO BID, (Reported) Doxycycline Hyclate (Doxycycline Hyclate) 100 Mg Tablet, 100 MG PO DAILY@1800 Ergocalciferol (Vitamin D2) (Vitamin D2) 50,000 Units Cap, 50,000 UNITS PO QWEEK, (Reported) Scheduled PRN Acetaminophen (Tylenol Arthritis) 650 Mg Tablet.er, 650 MG PO BID PRN for PAIN LEVEL 1-4, (Reported) Loratadine (Loratadine) 10 Mg Tablet, 10 MG PO DAILY PRN for ALLERGY SYMPTOMS, (Reported) Allergies Coded Allergies: Penicillins (Verified Allergy, Unknown, 05/27/21) Sulfa (Sulfonamide Antibiotics) (Verified Allergy, Unknown, 05/27/21) YESSENIA HERNANDEZ DO May 30, 2021 12:47
[2021-05-30] MEDS ORDERED: PREVNAR 13 VACCINE SYRINGE IM ONE (14:00)
[2021-05-30] MEDS ORDERED: FLUBLOK(EGG FREE)(QUAD)INFLUENZA VACC 0.5ML SYRINGE 18YRS & OLDER IM ONE (14:00)
--- NOTE | 2021-05-30 19:11 | ECGEPIP ---
[facility] Test Date: 2021-05-29 Pat Name: BROOKE TIAN Department: Room: [place] [address] Gender: Female Hay Stacker: FLORIAN : 1940 Requested By: YESSENIA HERNANDEZ Order Number: [id number] Reading MD: Chris Winslow Measurements Intervals [place] Rate: 75 P: 82 MI: 176 QRS: 25 QRSD: 58 T: 32 QT: 380 QTc: 424 Interpretive Statements Normal sinus rhythm Similar to tracing done 05-27-21 Electronically Signed on 05-30-2021 19:11:30 EDT by Chris Winslow
[2021-06-03] MEDS ORDERED: VITAMIN D 50,000 UNITS CAPSULE (ERGOCALCIFEROL 1.25MG) PO SCH (09:00)
== END 2021-05-30 14:08 | disposition home health service (06) | DRG 158 ==
LOC: EDBD 17:16 → M ED 17:16 → M ED INP 22:09 → ENRESERV 23:36 → M MSPAV 05-28 00:09
PROVIDERS: ADMIT Internal Medicine; ATTEND Internal Medicine
DX: S02.40CA Maxillary fracture, right side, initial encounter for closed fracture (principal); M62.82 Rhabdomyolysis; G91.2 (Idiopathic) normal pressure hydrocephalus; R55 Syncope and collapse; I10 Essential (primary) hypertension; W18.30XA Fall on same level, unspecified, initial encounter; Y92.009 Unspecified place in unspecified non-institutional (private) residence as the place of occurrence of the external cause; Z79.899 Other long term (current) drug therapy; Z88.0 Allergy status to penicillin; Z88.2 Allergy status to sulfonamides; F03.90 Unspecified dementia, unspecified severity, without behavioral disturbance, psychotic disturbance, mood disturbance, and anxiety; H26.9 Unspecified cataract; M81.0 Age-related osteoporosis without current pathological fracture

== ENCOUNTER → 2021-08-04 | Outpatient (CLI) | payer MEDICARE ==
[~2021-08-04] MED LIST: ACET650T61 PO; ALEN70TA82 PO; BUSP10TA; BUSP10TA PO; DOXY100T PO; ERGO500029; ERGO500029 PO; LORA-622 PO; LORA-674; MONT10TA10; OYST500T92 PO
[2021-08-04 17:31] LABS: BASO # 0.1 10^3/uL (0.0-0.2); EOS # 0.1 10^3/uL (0.0-0.5); EOS % 1.7 % (0.0-3.0); HEMATOCRIT 40.6 % (36.0-47.0); HEMOGLOBIN 13.7 g/dl (12.0-15.5); LYMPH # 1.7 10^3/uL (1.5-5.0); MEAN CORPUSCULAR HEMOGLOBIN 30.2 pg (27.0-33.0); MEAN CORPUSCULAR HGB CONC 33.7 g/dl (32.0-36.5); MEAN CORPUSCULAR VOLUME 89.6 fl (80.0-96.0); MONO # 0.5 10^3/uL (0.0-0.8); MONO % 7.8 % (2.0-8.0); NEUTROPHILS # 3.7 10^3/uL (1.5-8.5); NEUTROPHILS % 61.3 % (36.0-66.0); PLATELET COUNT, AUTOMATED 272 10^3/uL (150-450); RED BLOOD COUNT 4.53 10^6/uL (4.00-5.40)
[2021-08-04 17:49] LABS: ALBUMIN 3.6 GM/DL (3.2-5.2); ALT/SGPT 21 U/L (12-78); BILIRUBIN,TOTAL 0.2 MG/DL (0.2-1.0); BLOOD UREA NITROGEN 18 MG/DL (7-18); CALCIUM LEVEL 9.3 MG/DL (8.8-10.2); CARBON DIOXIDE LEVEL 31 MEQ/L (21-32); CHLORIDE LEVEL 106 MEQ/L (98-107); CREATININE FOR GFR 0.74 MG/DL (0.55-1.30); GLOMERULAR FILTRATION RATE > 60.0 (>32); GLUCOSE, FASTING 99 MG/DL (70-100); POTASSIUM SERUM 4.1 MEQ/L (3.5-5.1); SODIUM LEVEL 141 MEQ/L (136-145); TOTAL PROTEIN 6.6 GM/DL (6.4-8.2)
[2021-08-04 17:58] LABS: FOLATE 6.5 NG/ML; VITAMIN B12 LEVEL 359 PG/ML
== END ==
LOC: M PLALAB 14:35
PROVIDERS: ATTEND Psychiatry & Neurology Neurology
DX: F03.90 Unspecified dementia, unspecified severity, without behavioral disturbance, psychotic disturbance, mood disturbance, and anxiety (principal)

== ENCOUNTER 2021-10-21 17:14 | Emergency (ER) | payer MEDICARE ==
[~2021-10-21] VITALS: Ht 167.6 cm; Wt 81.8 kg
[~2021-10-21 17:14] MED LIST changes: -MONT10TA10; +MONT10TA97
[2021-10-21 17:57] LABS: BASO # 0.1 10^3/uL (0.0-0.2); EOS # 0.1 10^3/uL (0.0-0.5); EOS % 1.3 % (0.0-3.0); HEMATOCRIT 40.9 % (36.0-47.0); HEMOGLOBIN 13.9 g/dl (12.0-15.5); LYMPH # 1.3 10^3/uL (1.5-5.0); LYMPH % 25.2 % (24.0-44.0); MEAN CORPUSCULAR HEMOGLOBIN 30.2 pg (27.0-33.0); MEAN CORPUSCULAR VOLUME 88.7 fl (80.0-96.0); MONO # 0.6 10^3/uL (0.0-0.8); MONO % 10.7 % (2.0-8.0); NEUTROPHILS # 3.2 10^3/uL (1.5-8.5); NEUTROPHILS % 61.6 % (36.0-66.0); PLATELET COUNT, AUTOMATED 243 10^3/uL (150-450); RED BLOOD COUNT 4.61 10^6/uL (4.00-5.40); WHITE BLOOD COUNT 5.2 10^3/uL (4.0-10.0)
[2021-10-21 18:22] LABS: BLOOD UREA NITROGEN 10 MG/DL (7-18); CALCIUM LEVEL 9.3 MG/DL (8.8-10.2); CARBON DIOXIDE LEVEL 31 MEQ/L (21-32); CHLORIDE LEVEL 102 MEQ/L (98-107); CREATININE FOR GFR 0.63 MG/DL (0.55-1.30); GLOMERULAR FILTRATION RATE > 60.0 (>32); GLUCOSE, FASTING 89 MG/DL (70-100); SODIUM LEVEL 137 MEQ/L (136-145)
[2021-10-21 20:05] VITALS: BP 119/83
== END 2021-10-21 20:26 | disposition home or self-care (01) ==
LOC: EDBD 17:14 → M ED 17:14
DX: F03.90 Unspecified dementia, unspecified severity, without behavioral disturbance, psychotic disturbance, mood disturbance, and anxiety (principal); I10 Essential (primary) hypertension; J44.9 Chronic obstructive pulmonary disease, unspecified; Z87.891 Personal history of nicotine dependence; Z79.899 Other long term (current) drug therapy

== ENCOUNTER 2021-10-24 18:41 | Inpatient (IN) | payer MEDICARE ==
[~2021-10-24] VITALS: Ht 152.4 cm; Wt 52.1 kg
[2021-10-24 23:36] LABS: BASO # 0.1 10^3/uL (0.0-0.2); BASO % 1.2 % (0.0-1.0); EOS # 0.1 10^3/uL (0.0-0.5); EOS % 1.2 % (0.0-3.0); HEMATOCRIT 43.2 % (36.0-47.0); HEMOGLOBIN 14.6 g/dl (12.0-15.5); LYMPH # 1.8 10^3/uL (1.5-5.0); LYMPH % 30.3 % (24.0-44.0); MEAN CORPUSCULAR HEMOGLOBIN 30.2 pg (27.0-33.0); MEAN CORPUSCULAR HGB CONC 33.8 g/dl (32.0-36.5); MEAN CORPUSCULAR VOLUME 89.3 fl (80.0-96.0); MONO # 0.7 10^3/uL (0.0-0.8); MONO % 12.3 % (2.0-8.0); NEUTROPHILS # 3.2 10^3/uL (1.5-8.5); NEUTROPHILS % 54.7 % (36.0-66.0); PLATELET COUNT, AUTOMATED 242 10^3/uL (150-450); RED BLOOD COUNT 4.84 10^6/uL (4.00-5.40); WHITE BLOOD COUNT 5.9 10^3/uL (4.0-10.0)
[2021-10-25 01:33] LABS: ALBUMIN 3.6 GM/DL (3.2-5.2); ALT/SGPT 35 U/L (12-78); BILIRUBIN,TOTAL 0.5 MG/DL (0.2-1.0); BLOOD UREA NITROGEN 20 MG/DL (7-18); CALCIUM LEVEL 9.2 MG/DL (8.8-10.2); CARBON DIOXIDE LEVEL 32 MEQ/L (21-32); CHLORIDE LEVEL 104 MEQ/L (98-107); CREATININE FOR GFR 0.68 MG/DL (0.55-1.30); GLOMERULAR FILTRATION RATE > 60.0 (>32); GLUCOSE, FASTING 103 MG/DL (70-100); POTASSIUM SERUM 3.5 MEQ/L (3.5-5.1); SODIUM LEVEL 141 MEQ/L (136-145); TOTAL PROTEIN 6.5 GM/DL (6.4-8.2)
[2021-10-25 04:10] LABS: RSV AMPLIFICATION NEGATIVE (NEGATIVE)
[2021-10-25] MEDS ORDERED: HOME MED LIST COMPLETE! XX SCH (04:45)
[2021-10-25] MEDS ORDERED: NS 1,000 ML IV SCH (05:40)
[2021-10-25 06:00] VITALS: BP 125/64
[2021-10-25 06:33] LABS: HEMATOCRIT 40.2 % (36.0-47.0); HEMOGLOBIN 13.4 g/dl (12.0-15.5); MEAN CORPUSCULAR HEMOGLOBIN 30.1 pg (27.0-33.0); MEAN CORPUSCULAR HGB CONC 33.3 g/dl (32.0-36.5); MEAN CORPUSCULAR VOLUME 90.3 fl (80.0-96.0); PLATELET COUNT, AUTOMATED 210 10^3/uL (150-450); RED BLOOD COUNT 4.45 10^6/uL (4.00-5.40)
[2021-10-25] MEDS: ACETAMINOPHEN TAB 650MG DOSE (2X325MG) PO PRN ×2 (06:40→20:08)
[2021-10-25 07:09] LABS: BLOOD UREA NITROGEN 18 MG/DL (7-18); CALCIUM LEVEL 8.9 MG/DL (8.8-10.2); CARBON DIOXIDE LEVEL 32 MEQ/L (21-32); CHLORIDE LEVEL 106 MEQ/L (98-107); CREATININE FOR GFR 0.66 MG/DL (0.55-1.30); GLOMERULAR FILTRATION RATE > 60.0 (>32); GLUCOSE, FASTING 101 MG/DL (70-100); MAGNESIUM LEVEL 2.2 MG/DL (1.8-2.4); NT-PRO BNP 202 PG/ML (<450); POTASSIUM SERUM 3.7 MEQ/L (3.5-5.1); SODIUM LEVEL 141 MEQ/L (136-145)
[2021-10-25] MEDS: ENOXAPARIN 40MG/0.4ML SYRINGE (J1650 PER 10MG) SC SCH (08:39)
[2021-10-25 14:00] VITALS: BP 122/75
[2021-10-25] MEDS: QUEtiapine FUMARATE 25 MG TAB PO SCH (20:08)
[2021-10-25 20:58] VITALS: BP 120/76
[2021-10-26 05:58] LABS: EOS # 0.1 10^3/uL (0.0-0.5); EOS % 3.1 % (0.0-3.0); HEMATOCRIT 37.9 % (36.0-47.0); HEMOGLOBIN 12.7 g/dl (12.0-15.5); LYMPH # 1.8 10^3/uL (1.5-5.0); LYMPH % 43.8 % (24.0-44.0); MEAN CORPUSCULAR HEMOGLOBIN 29.8 pg (27.0-33.0); MEAN CORPUSCULAR HGB CONC 33.5 g/dl (32.0-36.5); MONO # 0.5 10^3/uL (0.0-0.8); MONO % 11.1 % (2.0-8.0); NEUTROPHILS # 1.7 10^3/uL (1.5-8.5); PLATELET COUNT, AUTOMATED 214 10^3/uL (150-450); RED BLOOD COUNT 4.26 10^6/uL (4.00-5.40); WHITE BLOOD COUNT 4.2 10^3/uL (4.0-10.0)
[2021-10-26 06:00] VITALS: BP 133/74
[2021-10-26 06:19] LABS: BLOOD UREA NITROGEN 12 MG/DL (7-18); CALCIUM LEVEL 8.8 MG/DL (8.8-10.2); CARBON DIOXIDE LEVEL 30 MEQ/L (21-32); CHLORIDE LEVEL 108 MEQ/L (98-107); CREATININE FOR GFR 0.61 MG/DL (0.55-1.30); GLOMERULAR FILTRATION RATE > 60.0 (>32); GLUCOSE, FASTING 87 MG/DL (70-100); MAGNESIUM LEVEL 2.1 MG/DL (1.8-2.4); POTASSIUM SERUM 3.6 MEQ/L (3.5-5.1); SODIUM LEVEL 140 MEQ/L (136-145)
[2021-10-26] MEDS: ACETAMINOPHEN TAB 650MG DOSE (2X325MG) PO PRN ×2 (06:30→20:36)
[2021-10-26] MEDS: ENOXAPARIN 40MG/0.4ML SYRINGE (J1650 PER 10MG) SC SCH (09:53)
[2021-10-26] MEDS ORDERED: DOCUSATE SODIUM 100MG CAPSULE PO PRN (18:20)
[2021-10-26] MEDS ORDERED: SENNA 8.6 MG TAB (SENOKOT) PO PRN (18:20)
[2021-10-26] MEDS: QUEtiapine FUMARATE 25 MG TAB PO SCH (20:36)
[2021-10-26 22:00] VITALS: BP 111/58
[2021-10-27 06:00] VITALS: BP 113/63
[2021-10-27 06:13] LABS: BASO # 0.1 10^3/uL (0.0-0.2); BASO % 1.3 % (0.0-1.0); EOS # 0.2 10^3/uL (0.0-0.5); EOS % 3.8 % (0.0-3.0); HEMATOCRIT 36.5 % (36.0-47.0); HEMOGLOBIN 12.3 g/dl (12.0-15.5); LYMPH # 1.8 10^3/uL (1.5-5.0); LYMPH % 40.7 % (24.0-44.0); MEAN CORPUSCULAR HEMOGLOBIN 29.9 pg (27.0-33.0); MEAN CORPUSCULAR HGB CONC 33.7 g/dl (32.0-36.5); MEAN CORPUSCULAR VOLUME 88.6 fl (80.0-96.0); MONO # 0.5 10^3/uL (0.0-0.8); MONO % 10.6 % (2.0-8.0); NEUTROPHILS % 43.4 % (36.0-66.0); PLATELET COUNT, AUTOMATED 206 10^3/uL (150-450); RED BLOOD COUNT 4.12 10^6/uL (4.00-5.40); WHITE BLOOD COUNT 4.5 10^3/uL (4.0-10.0)
[2021-10-27 06:41] LABS: BLOOD UREA NITROGEN 15 MG/DL (7-18); CALCIUM LEVEL 8.7 MG/DL (8.8-10.2); CARBON DIOXIDE LEVEL 30 MEQ/L (21-32); CHLORIDE LEVEL 107 MEQ/L (98-107); GLOMERULAR FILTRATION RATE > 60.0 (>32); GLUCOSE, FASTING 88 MG/DL (70-100); MAGNESIUM LEVEL 2.1 MG/DL (1.8-2.4); POTASSIUM SERUM 3.7 MEQ/L (3.5-5.1); SODIUM LEVEL 141 MEQ/L (136-145)
[2021-10-27] MEDS: ENOXAPARIN 40MG/0.4ML SYRINGE (J1650 PER 10MG) SC SCH (11:39)
[2021-10-27] MEDS: QUEtiapine FUMARATE 25 MG TAB PO SCH (20:02)
[2021-10-28 06:13] VITALS: BP 129/68
[2021-10-28 06:34] LABS: BASO # 0.1 10^3/uL (0.0-0.2); EOS # 0.2 10^3/uL (0.0-0.5); HEMATOCRIT 37.3 % (36.0-47.0); HEMOGLOBIN 12.4 g/dl (12.0-15.5); LYMPH # 1.9 10^3/uL (1.5-5.0); LYMPH % 38.1 % (24.0-44.0); MEAN CORPUSCULAR HEMOGLOBIN 29.8 pg (27.0-33.0); MEAN CORPUSCULAR HGB CONC 33.2 g/dl (32.0-36.5); MEAN CORPUSCULAR VOLUME 89.7 fl (80.0-96.0); MONO # 0.6 10^3/uL (0.0-0.8); MONO % 12.7 % (2.0-8.0); NEUTROPHILS # 2.2 10^3/uL (1.5-8.5); PLATELET COUNT, AUTOMATED 222 10^3/uL (150-450); RED BLOOD COUNT 4.16 10^6/uL (4.00-5.40)
[2021-10-28 06:53] LABS: BLOOD UREA NITROGEN 20 MG/DL (7-18); CALCIUM LEVEL 8.9 MG/DL (8.8-10.2); CARBON DIOXIDE LEVEL 32 MEQ/L (21-32); CHLORIDE LEVEL 104 MEQ/L (98-107); CREATININE FOR GFR 0.64 MG/DL (0.55-1.30); GLOMERULAR FILTRATION RATE > 60.0 (>32); GLUCOSE, FASTING 88 MG/DL (70-100); MAGNESIUM LEVEL 2.3 MG/DL (1.8-2.4); POTASSIUM SERUM 4.1 MEQ/L (3.5-5.1); SODIUM LEVEL 139 MEQ/L (136-145)
[2021-10-28] MEDS: ENOXAPARIN 40MG/0.4ML SYRINGE (J1650 PER 10MG) SC SCH (08:08)
[2021-10-28] MEDS: ACETAMINOPHEN TAB 650MG DOSE (2X325MG) PO PRN (08:11)
[2021-10-28] MEDS ORDERED: COLA100C5 PO (10:00)
[2021-10-28] MEDS ORDERED: SENN18TA PO (10:00)
[2021-10-28] MEDS ORDERED: QUET1TAB17 PO (10:00)
== END 2021-10-28 11:38 | DRG 884 ==
LOC: M ED 18:41 → M ED INP 18:42 → ENRESERV 10-25 04:26 → M MSPAV 10-25 05:35 → OBSVTOIN 10-25 09:05
PROVIDERS: ADMIT Family Medicine; ATTEND Internal Medicine
DX: F03.91 Unspecified dementia, unspecified severity, with behavioral disturbance (principal); E46 Unspecified protein-calorie malnutrition; G91.2 (Idiopathic) normal pressure hydrocephalus; R62.7 Adult failure to thrive; J44.9 Chronic obstructive pulmonary disease, unspecified; Z88.0 Allergy status to penicillin; Z88.2 Allergy status to sulfonamides; Z96.653 Presence of artificial knee joint, bilateral; M81.0 Age-related osteoporosis without current pathological fracture; Z98.41 Cataract extraction status, right eye; Z98.42 Cataract extraction status, left eye; Z66 Do not resuscitate

== ENCOUNTER → 2021-12-29 | Outpatient (REF) ==
[~2021-12-29] MED LIST changes: +COLA100C5 PO; +QUET1TAB17 PO; +SENN18TA PO
== END ==
LOC: SKLAB6 20:19
PROVIDERS: ATTEND Neuromusculoskeletal Medicine & OMM
DX: M25.552 Pain in left hip (principal); M25.551 Pain in right hip; M25.59 Pain in other specified joint; Z91.81 History of falling

== ENCOUNTER → 2022-01-23 | Outpatient (REF) | payer MEDICARE ==
[2022-01-23 09:24] LABS: BASO # 0.1 10^3/uL (0.0-0.2); BASO % 0.9 % (0.0-1.0); EOS # 0.2 10^3/uL (0.0-0.5); EOS % 3.6 % (0.0-3.0); HEMATOCRIT 36.3 % (36.0-47.0); HEMOGLOBIN 11.8 g/dl (12.0-15.5); LYMPH # 1.6 10^3/uL (1.5-5.0); LYMPH % 30.1 % (24.0-44.0); MEAN CORPUSCULAR HEMOGLOBIN 29.2 pg (27.0-33.0); MEAN CORPUSCULAR HGB CONC 32.5 g/dl (32.0-36.5); MEAN CORPUSCULAR VOLUME 89.9 fl (80.0-96.0); MONO # 0.6 10^3/uL (0.0-0.8); MONO % 11.8 % (2.0-8.0); NEUTROPHILS # 2.8 10^3/uL (1.5-8.5); NEUTROPHILS % 53.2 % (36.0-66.0); PLATELET COUNT, AUTOMATED 214 10^3/uL (150-450); RED BLOOD COUNT 4.04 10^6/uL (4.00-5.40); WHITE BLOOD COUNT 5.3 10^3/uL (4.0-10.0)
[2022-01-23 09:54] LABS: ALBUMIN 3.1 GM/DL (3.2-5.2); ALT/SGPT 14 U/L (12-78); BILIRUBIN,TOTAL 0.5 MG/DL (0.2-1.0); BLOOD UREA NITROGEN 14 MG/DL (7-18); CALCIUM LEVEL 9.1 MG/DL (8.8-10.2); CARBON DIOXIDE LEVEL 31 MEQ/L (21-32); CHLORIDE LEVEL 108 MEQ/L (98-107); CREATININE FOR GFR 0.64 MG/DL (0.55-1.30); GLOMERULAR FILTRATION RATE > 60.0 (>32); GLUCOSE, FASTING 88 MG/DL (70-100); SODIUM LEVEL 142 MEQ/L (136-145); TOTAL PROTEIN 5.9 GM/DL (6.4-8.2)
== END ==
LOC: SKLAB6 07:11
PROVIDERS: ATTEND Neuromusculoskeletal Medicine & OMM
DX: R29.6 Repeated falls (principal)

== ENCOUNTER → 2022-02-07 | Outpatient (REF) | payer MEDICARE ==
[2022-02-07 14:39] LABS: HEMATOCRIT 38.2 % (36.0-47.0); HEMOGLOBIN 12.5 g/dl (12.0-15.5); MEAN CORPUSCULAR HEMOGLOBIN 29.1 pg (27.0-33.0); MEAN CORPUSCULAR HGB CONC 32.7 g/dl (32.0-36.5); MEAN CORPUSCULAR VOLUME 88.8 fl (80.0-96.0); PLATELET COUNT, AUTOMATED 258 10^3/uL (150-450); WHITE BLOOD COUNT 5.1 10^3/uL (4.0-10.0)
[2022-02-07 14:58] LABS: BLOOD UREA NITROGEN 20 MG/DL (7-18); CALCIUM LEVEL 9.5 MG/DL (8.8-10.2); CARBON DIOXIDE LEVEL 29 MEQ/L (21-32); CHLORIDE LEVEL 105 MEQ/L (98-107); CREATININE FOR GFR 0.76 MG/DL (0.55-1.30); GLOMERULAR FILTRATION RATE > 60.0 (>32); GLUCOSE, FASTING 106 MG/DL (70-100); POTASSIUM SERUM 4.3 MEQ/L (3.5-5.1); SODIUM LEVEL 142 MEQ/L (136-145)
== END ==
LOC: SKLAB6 13:38
PROVIDERS: ATTEND Nurse Practitioner Adult Health
DX: R53.83 Other fatigue (principal); R60.9 Edema, unspecified

== ENCOUNTER → 2022-02-13 | Outpatient (REF) | payer MEDICARE ==
[2022-02-13 08:04] LABS: BLOOD UREA NITROGEN 18 MG/DL (7-18); CALCIUM LEVEL 9.6 MG/DL (8.8-10.2); CARBON DIOXIDE LEVEL 29 MEQ/L (21-32); CHLORIDE LEVEL 105 MEQ/L (98-107); CREATININE FOR GFR 0.75 MG/DL (0.55-1.30); GLOMERULAR FILTRATION RATE > 60.0 (>32); GLUCOSE, FASTING 98 MG/DL (70-100); POTASSIUM SERUM 4.4 MEQ/L (3.5-5.1); SODIUM LEVEL 139 MEQ/L (136-145)
== END ==
LOC: SKLAB6 08:00
PROVIDERS: ATTEND Nurse Practitioner Adult Health
DX: R53.83 Other fatigue (principal); R60.9 Edema, unspecified

== ENCOUNTER → 2022-03-15 | Outpatient (REF) | payer MEDICARE ==
[2022-03-15 09:01] LABS: BLOOD UREA NITROGEN 16 MG/DL (7-18); CALCIUM LEVEL 9.5 MG/DL (8.8-10.2); CARBON DIOXIDE LEVEL 28 MEQ/L (21-32); CHLORIDE LEVEL 106 MEQ/L (98-107); CREATININE FOR GFR 0.69 MG/DL (0.55-1.30); GLOMERULAR FILTRATION RATE > 60.0 (>32); GLUCOSE, FASTING 95 MG/DL (70-100); POTASSIUM SERUM 4.2 MEQ/L (3.5-5.1); SODIUM LEVEL 140 MEQ/L (136-145)
== END ==
LOC: SKLAB6 07:00
PROVIDERS: ATTEND Neuromusculoskeletal Medicine & OMM
DX: I10 Essential (primary) hypertension (principal)

== ENCOUNTER → 2022-06-01 | Outpatient (REF) | payer MEDICARE ==
[2022-06-01 10:26] LABS: BLOOD UREA NITROGEN 17 MG/DL (7-18); CALCIUM LEVEL 9.6 MG/DL (8.8-10.2); CARBON DIOXIDE LEVEL 32 MEQ/L (21-32); CHLORIDE LEVEL 99 MEQ/L (98-107); CREATININE FOR GFR 0.79 MG/DL (0.55-1.30); GLOMERULAR FILTRATION RATE > 60.0 (>32); GLUCOSE, FASTING 149 MG/DL (70-100); POTASSIUM SERUM 3.7 MEQ/L (3.5-5.1); SODIUM LEVEL 136 MEQ/L (136-145)
== END ==
LOC: SKLAB6 07:06
PROVIDERS: ATTEND Nurse Practitioner Family
DX: I10 Essential (primary) hypertension (principal)

== ENCOUNTER → 2022-06-23 | Outpatient (CLI) | payer MEDICARE ==
[~2022-06-23] MED LIST changes: +ISOVUE-370 76% 100ML VIAL As Ordered ONE
== END ==
LOC: M RAD 10:35
PROVIDERS: ATTEND Nurse Practitioner Adult Health
DX: R06.02 Shortness of breath (principal)
CPT/HCPCS: 36415; 71045; 71275; 80048; 85027; Q9967

== ENCOUNTER → 2022-06-23 | Outpatient (REF) | payer MEDICARE ==
[~2022-06-23] MED LIST changes: -ISOVUE-370 76% 100ML VIAL As Ordered ONE
[2022-06-23 09:21] LABS: HEMATOCRIT 39.4 % (36.0-47.0); HEMOGLOBIN 13.1 g/dl (12.0-15.5); MEAN CORPUSCULAR HEMOGLOBIN 29.4 pg (27.0-33.0); MEAN CORPUSCULAR HGB CONC 33.2 g/dl (32.0-36.5); MEAN CORPUSCULAR VOLUME 88.3 fl (80.0-96.0); PLATELET COUNT, AUTOMATED 243 10^3/uL (150-450); RED BLOOD COUNT 4.46 10^6/uL (4.00-5.40); WHITE BLOOD COUNT 4.7 10^3/uL (4.0-10.0)
[2022-06-23 09:52] LABS: BLOOD UREA NITROGEN 20 MG/DL (7-18); CALCIUM LEVEL 9.4 MG/DL (8.8-10.2); CARBON DIOXIDE LEVEL 30 MEQ/L (21-32); CHLORIDE LEVEL 103 MEQ/L (98-107); CREATININE FOR GFR 0.78 MG/DL (0.55-1.30); GLOMERULAR FILTRATION RATE > 60.0 (>32); GLUCOSE, FASTING 95 MG/DL (70-100); POTASSIUM SERUM 3.5 MEQ/L (3.5-5.1); SODIUM LEVEL 138 MEQ/L (136-145)
== END ==
LOC: SKLAB6 08:24
PROVIDERS: ATTEND Internal Medicine
DX: R06.02 Shortness of breath (principal); I51.7 Cardiomegaly

== ENCOUNTER → 2022-06-26 | Outpatient (REF) | payer MEDICARE ==
[2022-06-26 07:03] LABS: BLOOD UREA NITROGEN 29 MG/DL (7-18); CALCIUM LEVEL 9.6 MG/DL (8.8-10.2); CARBON DIOXIDE LEVEL 32 MEQ/L (21-32); CHLORIDE LEVEL 96 MEQ/L (98-107); GLOMERULAR FILTRATION RATE > 60.0 (>32); GLUCOSE, FASTING 103 MG/DL (70-100); POTASSIUM SERUM 3.1 MEQ/L (3.5-5.1); SODIUM LEVEL 135 MEQ/L (136-145)
== END ==
LOC: SKLAB6 07:00
PROVIDERS: ATTEND Internal Medicine
DX: I10 Essential (primary) hypertension (principal)

== ENCOUNTER → 2022-08-04 | Outpatient (REF) | payer MEDICARE ==
[2022-08-04 08:54] LABS: HEMATOCRIT 38.7 % (36.0-47.0); HEMOGLOBIN 12.8 g/dl (12.0-15.5); MEAN CORPUSCULAR HGB CONC 33.1 g/dl (32.0-36.5); MEAN CORPUSCULAR VOLUME 87.6 fl (80.0-96.0); PLATELET COUNT, AUTOMATED 211 10^3/uL (150-450); RED BLOOD COUNT 4.42 10^6/uL (4.00-5.40); WHITE BLOOD COUNT 5.2 10^3/uL (4.0-10.0)
[2022-08-04 09:12] LABS: ALBUMIN 3.3 G/DL (3.2-5.2); ALKALINE PHOSPHATASE 89 U/L (46-116); ALT/SGPT 16 U/L (7.0-40); AST/SGOT 26 U/L (<34); BILIRUBIN,TOTAL 0.4 MG/DL (0.3-1.2); BLOOD UREA NITROGEN 18 MG/DL (9-23); CALCIUM LEVEL 8.8 MG/DL (8.3-10.6); CARBON DIOXIDE LEVEL 24 MMOL/L (20-31); CHLORIDE LEVEL 102 MMOL/L (98-107); CREATININE FOR GFR 0.69 MG/DL (0.55-1.30); GLOMERULAR FILTRATION RATE > 60.0 (>32); GLUCOSE, FASTING 106 MG/DL (74-106); POTASSIUM SERUM 3.9 MMOL/L (3.5-5.1); SODIUM LEVEL 138 MMOL/L (136-145); TOTAL PROTEIN 6.5 G/DL (5.7-8.2)
== END ==
LOC: SKLAB6 14:02
PROVIDERS: ATTEND Internal Medicine
DX: U07.1 COVID-19 (principal); Z79.899 Other long term (current) drug therapy

== ENCOUNTER → 2022-12-21 | Outpatient (REF) | payer MEDICARE ==
[~2022-12-21] MED LIST changes: +SENN-111 PO; -SENN18TA PO
[2022-12-21 11:36] LABS: APPEARANCE, URINE CLEAR (CLEAR); BACTERIA, URINE AUTO NEGATIVE (NEGATIVE); BILIRUBIN, URINE AUTO NEGATIVE (NEGATIVE); BLOOD, URINE BLOOD NEGATIVE (NEGATIVE); COLOR, URINE YELLOW (YELLOW); GLUCOSE, URINE (UA) AUTO 1+ mg/dL (NEGATIVE); KETONE, URINE AUTO NEGATIVE (NEGATIVE); LEUKOCYTE ESTERASE, URINE AUTO 1+ (NEGATIVE); MUCUS, URINE SMALL (NEGATIVE); NITRITE, URINE AUTO NEGATIVE (NEGATIVE); PROTEIN, URINE AUTO NEGATIVE (NEGATIVE); RBC, URINE AUTO 0 /HPF (0-3); SPECIFIC GRAVITY URINE AUTO 1.011 (1.002-1.035); SQUAMOUS EPITHELIAL CELL UR AU 2 /HPF (0-6); UROBILINOGEN, URINE AUTO 0.2 mg/dL (0.0-2.0); WBC, URINE AUTO 18 /HPF (0-3)
== END ==
LOC: SKLAB6 10:31
PROVIDERS: ATTEND Internal Medicine
DX: R53.83 Other fatigue (principal); N17.9 Acute kidney failure, unspecified; E87.1 Hypo-osmolality and hyponatremia

== ENCOUNTER → 2022-12-21 | Outpatient (REF) | payer MEDICARE ==
[2022-12-21 07:28] LABS: HEMATOCRIT 52.7 % (36.0-47.0); HEMOGLOBIN 16.3 g/dl (12.0-15.5); MEAN CORPUSCULAR HGB CONC 30.9 g/dl (32.0-36.5); MEAN CORPUSCULAR VOLUME 96.9 fl (80.0-96.0); PLATELET COUNT, AUTOMATED 224 10^3/uL (150-450); RED BLOOD COUNT 5.44 10^6/uL (4.00-5.40); WHITE BLOOD COUNT 15.4 10^3/uL (4.0-10.0)
[2022-12-21 08:09] LABS: CALCIUM LEVEL 9.7 MG/DL (8.3-10.6); CREATININE FOR GFR 2.11 MG/DL (0.55-1.30); GLOMERULAR FILTRATION RATE 23.8 (>32); POTASSIUM SERUM 3.4 MMOL/L (3.5-5.1)
== END ==
LOC: SKLAB6 07:00
PROVIDERS: ATTEND Internal Medicine
DX: E87.0 Hyperosmolality and hypernatremia (principal); R53.83 Other fatigue; N17.9 Acute kidney failure, unspecified; E87.1 Hypo-osmolality and hyponatremia

== ENCOUNTER → 2022-12-22 | Outpatient (REF) | payer MEDICARE ==
[~2022-12-22] MED LIST changes: -SENN-111 PO; +SENN18TA PO
[2022-12-22 08:41] LABS: HEMATOCRIT 48.5 % (36.0-47.0); HEMOGLOBIN 14.8 g/dl (12.0-15.5); MEAN CORPUSCULAR HEMOGLOBIN 29.4 pg (27.0-33.0); MEAN CORPUSCULAR HGB CONC 30.5 g/dl (32.0-36.5); MEAN CORPUSCULAR VOLUME 96.2 fl (80.0-96.0); PLATELET COUNT, AUTOMATED 206 10^3/uL (150-450); RED BLOOD COUNT 5.04 10^6/uL (4.00-5.40); WHITE BLOOD COUNT 12.9 10^3/uL (4.0-10.0)
[2022-12-22 09:11] LABS: CALCIUM LEVEL 8.9 MG/DL (8.3-10.6); CREATININE FOR GFR 1.61 MG/DL (0.55-1.30); GLOMERULAR FILTRATION RATE 32.5 (>32); POTASSIUM SERUM 3.4 MMOL/L (3.5-5.1)
== END ==
LOC: SKLAB6 07:00
PROVIDERS: ATTEND Internal Medicine
DX: E87.0 Hyperosmolality and hypernatremia (principal)